=== PATIENT | female | born 1955 | race Two or more races ===

== ENCOUNTER 2024-06-30 06:06 | Day surgery (SDC) | payer OTHER ==
[~2024-06-30] VITALS: Ht 147.3 cm; Wt 70.0 kg
[~2024-06-30 06:06] MED LIST: CYCLOPENTOLATE HCL 1% 2 ML OPHTHALMIC SOLUTION ONE; KETOROLAC TROMETHAMINE 0.5% 5 ML OPHTHALMIC SOLUTION ONE; MOXIFLOXACIN HCL 0.5% 3 ML OPHTHALMIC SOLUTION ONE; PHENYLEPHRINE HCL 2.5% 2 ML OPHTHALMIC SOLUTION ONE; PROPARACAINE HCL 0.5% 15 ML OPHTHALMIC SOLUTION ONE; RINGERS SOLUTION,LACTATED 500 ML IV ONE; TETRACAINE HCL/PF 0.5% 4 ML OPHTHALMIC SOLUTION ONE; TROPICAMIDE 1% 2 ML OPHTHALMIC SOLUTION ONE
[2024-06-30] MEDS ORDERED: EPINEPHrine 1:1,000 [1 MG/ML] VIAL SQ ONE (06:07)
[2024-06-30] MEDS ORDERED: TETRACAINE HCL/PF 0.5% 4 ML OPHTHALMIC SOLUTION OD ONE (06:07)
[2024-06-30] MEDS ORDERED: LIDOCAINE 2%/EPI 1:200,000/PF 10 ML VIAL IM ONE (06:07)
[2024-06-30] MEDS ORDERED: POVIDONE-IODINE 5% 30 ML OPHTHALMIC SOLUTION OD ONE (06:07)
[2024-06-30] MEDS ORDERED: HYALURONATE SOD 8.5MG/0.85ML 10 MG/ML SYRINGE IO ONE (06:07)
[2024-06-30] MEDS ORDERED: NEOMYCIN/POLYMYXIN B/DEXAMETH 3.5 GM OPHTHALMIC OINTMENT OD ONE (06:07)
[2024-06-30] MEDS: RINGERS SOLUTION,LACTATED 500 ML IV ONE (07:00)
[2024-06-30] MEDS: PROPARACAINE HCL 0.5% 15 ML OPHTHALMIC SOLUTION OD ONE (07:00)
[2024-06-30] MEDS: TROPICAMIDE 1% 2 ML OPHTHALMIC SOLUTION OD SCH (07:00)
[2024-06-30] MEDS: KETOROLAC TROMETHAMINE 0.5% 5 ML OPHTHALMIC SOLUTION OD SCH (07:00)
[2024-06-30] MEDS: CYCLOPENTOLATE HCL 1% 2 ML OPHTHALMIC SOLUTION OD SCH (07:00)
[2024-06-30] MEDS: TETRACAINE HCL/PF 0.5% 4 ML OPHTHALMIC SOLUTION OD ONE (07:01)
[2024-06-30] MEDS: MOXIFLOXACIN HCL 0.5% 3 ML OPHTHALMIC SOLUTION OD SCH (07:01)
[2024-06-30] MEDS: PHENYLEPHRINE HCL 2.5% 2 ML OPHTHALMIC SOLUTION OD SCH (07:01)
[2024-06-30] MEDS ORDERED: MIDAZOLAM HCL 2 MG/2 ML VIAL ONE (07:03)
[2024-06-30] MEDS ORDERED: FentaNYL CITRATE PF 100 MCG/2 ML VIAL ONE (07:03)
[2024-06-30] MEDS: TETRACAINE HCL/PF 0.5% 4 ML OPHTHALMIC SOLUTION OD SCH (07:11)
[2024-06-30] MEDS ORDERED: BALANCED SALT 15 ML OPHTHALMIC IRRIG.SOLN ONE (07:36)
[2024-06-30] MEDS ORDERED: PrednisoLONE ACETATE 1% 5 ML OPHTHALMIC SUSPENSION ONE (07:49)
[2024-06-30] MEDS: EPINEPHrine 1:1,000 [1 MG/ML] VIAL ONE (08:23)
[2024-06-30] MEDS: LIDOCAINE/PF 1% 2 ML VIAL ONE (08:55)
[2024-06-30] MEDS: NEOMYCIN/POLYMYXIN B/DEXAMETH 3.5 GM OPHTHALMIC OINTMENT ONE (08:55)
[2024-06-30] MEDS ORDERED: ACETAMINOPHEN 1000 MG/ISO-OSM 100 ML IV ONE (09:38)
[2024-06-30] MEDS: ACETAMINOPHEN 1000 MG/ISO-OSM 100 ML IV ONE (09:44)
[2024-06-30 11:15] LABS: GLUCOMETER DEV NAME(LOC) SDS.; GLUCOSE,POINT OF CARE 194 MG/DL (70-110)
[2024-07-05] MEDS: POVIDONE-IODINE 5% 30 ML OPHTHALMIC SOLUTION ONE (11:42)
== END 2024-06-30 10:30 | disposition home or self-care (01) ==
LOC: SURGERY 06:06
PROVIDERS: ATTEND Ophthalmology
DX: E11.36 Type 2 diabetes mellitus with diabetic cataract (principal); H25.11 Age-related nuclear cataract, right eye; I10 Essential (primary) hypertension; E66.3 Overweight; Z98.42 Cataract extraction status, left eye; Z68.32 Body mass index [BMI] 32.0-32.9, adult
CPT/HCPCS: 66984; 82962; 93005; J0171; J3010; J3490; J2250; J7120; J0131; V2632